=== PATIENT | male | born 1980 | race Two or more races ===

== ENCOUNTER 2018-11-14 08:57 | Inpatient (IN) | payer MEDICARE, OTHER ==
[~2018-11-14] VITALS: Ht 167.6 cm; Wt 72.6 kg
[2018-11-14] MEDS ORDERED: CEFAZOLIN 100 ML IV ONE (09:45)
[2018-11-14] MEDS ORDERED: LIDOCAINE HCL 1% 20 ML VIAL ONE ×2 (10:08→10:28)
[2018-11-14] MEDS ORDERED: BUPIVACAINE ONE (10:09)
[2018-11-14] MEDS ORDERED: BUPIVACAINE 0.25% 30 ML VIAL ONE (10:28)
[2018-11-14] MEDS ORDERED: POLYMYXIN B SULFATE 500,000 UNITS, BACITRACIN 50,000 UNITS, NORMAL SALINE 20 ML MC ONE ×3 (10:45)
[2018-11-14] MEDS ORDERED: MIDAZOLAM HCL 2 MG/2 ML VIAL ONE (10:52)
[2018-11-14] MEDS ORDERED: FENTANYL CITRATE 250 MCG/5 ML AMPUL ONE (10:52)
[2018-11-14] MEDS ORDERED: METOCLOPRAMIDE HCL 10 MG/2 ML VIAL ONE (10:53)
[2018-11-14] MEDS ORDERED: METOCLOPRAMIDE HCL 10 MG/2 ML VIAL IV ONE (13:20)
[2018-11-14] MEDS ORDERED: PROPOFOL 200 MG/20 ML BOTTLE IV ONE (13:20)
[2018-11-14] MEDS ORDERED: CEFAZOLIN 1 G VIAL MC ONE (13:20)
[2018-11-14] MEDS ORDERED: SEVOFLURANE 250 ML BOTTLE IH ONE (13:20)
[2018-11-14] MEDS ORDERED: EPHEDRINE SULFATE 50 MG/ML AMPUL MC ONE (13:20)
[2018-11-14] MEDS ORDERED: IV LACTATED RINGERS SOLUTION 1,000 ML BAG IV ONE (13:20)
[2018-11-14] MEDS ORDERED: ONDANSETRON 4 MG/2 ML VIAL IV ONE (13:20)
[2018-11-14 14:00] VITALS: BP 110/63
[2018-11-14 14:15] VITALS: BP 113/60
--- NOTE | 2018-11-14 14:20 | NUR ---
Received patient from surgery, patient oriented to room, and vitals recorded. pictures taken of wounds on left hip and right heal.
[2018-11-14 14:30] VITALS: BP 111/60
[2018-11-14 15:00] VITALS: BP 115/61
[2018-11-14 15:30] VITALS: BP 117/68
[2018-11-14] MEDS ORDERED: MAGNESIUM HYDROXIDE 30 ML LIQUID UDC PO PRN (18:45)
[2018-11-14] MEDS ORDERED: ONDANSETRON 4 MG/2 ML VIAL IV PRN (18:45)
[2018-11-14] MEDS ORDERED: HYDROCODONE/APAP 5-325MG TABLET PO PRN (18:45)
[2018-11-14] MEDS ORDERED: ACETAMINOPHEN 325 MG TABLET PO PRN (18:45)
[2018-11-14 18:57] LABS: BASOPHILS % (AUTO) 0.4 % (0.0-2.0); EOSINOPHILS # (AUTO) 0.2 K/uL (0.0-0.7); EOSINOPHILS % (AUTO) 2.1 % (0.0-7.0); HEMATOCRIT 37.5 % (36.7-47.1); HEMOGLOBIN 12.8 g/dL (12.5-16.3); LYMPHOCYTES % (AUTO) 10.5 % (20.5-51.5); MEAN CORPUSCULAR HEMOGLOBIN 31.1 uug (23.8-33.4); MEAN CORPUSCULAR HGB CONC 34 g/dL (32.5-36.3); MEAN CORPUSCULAR VOLUME 91.1 fL (73.0-96.2); MONOCYTES # (AUTO) 0.6 K/uL (2.0-10.0); MONOCYTES % (AUTO) 6.4 % (0.0-11.0); NEUTROPHILS # (AUTO) 7.7 K/uL (1.8-8.9); NEUTROPHILS % (AUTO) 80.6 % (38.5-71.5); PLATELET COUNT (AUTO) 394 K/uL (152-348); RED BLOOD CELL COUNT(AUTO) 4.12 MIL/uL (4.06-5.63); WHITE BLOOD COUNT (AUTO) 9.6 K/uL (3.6-10.2)
--- NOTE | 2018-11-14 19:12 | NUR ---
Patient in bed with mother at bedside. Patient's home wound care guide sent to physician to continue during hospitalization.
[2018-11-14 19:16] LABS: BILIRUBIN,TOTAL 0.6 mg/dL (0.2-1.0); TOTAL PROTEIN, SERUM 6.9 g/dL (6.4-8.2)
--- NOTE | 2018-11-14 19:20 | NUR ---
RECIEVED PATIENT AWAKE AND ALERT WITH FAMILY MEMBER AT BEDSIDE. NO COMPLAINTS OF PAIN OR DISCOMFORT. VS WNL AND PATIENT IS STABLE. IV SITE PATENT AND INTACT. BANDAGE ON LEFT LOWER EXTREMITY IS CLEAN, DRY, AND INTACT. WILL CONTINUE TO MONITOR.
[2018-11-14 20:00] VITALS: BP 110/62
[2018-11-14] MEDS: HYDROCODONE/APAP 10-325 MG TABLET PO PRN (20:34)
[2018-11-15 05:12] VITALS: BP 126/76
[2018-11-15 05:49] LABS: BASOPHILS % (AUTO) 0.4 % (0.0-2.0); EOSINOPHILS # (AUTO) 0.3 K/uL (0.0-0.7); EOSINOPHILS % (AUTO) 4.3 % (0.0-7.0); LYMPHOCYTES # (AUTO) 1.4 K/uL (20.0-40.0); LYMPHOCYTES % (AUTO) 19.9 % (20.5-51.5); MEAN CORPUSCULAR HEMOGLOBIN 30.4 uug (23.8-33.4); MEAN CORPUSCULAR HGB CONC 33 g/dL (32.5-36.3); MEAN CORPUSCULAR VOLUME 91.3 fL (73.0-96.2); MONOCYTES # (AUTO) 0.7 K/uL (2.0-10.0); MONOCYTES % (AUTO) 9.4 % (0.0-11.0); NEUTROPHILS # (AUTO) 4.6 K/uL (1.8-8.9); PLATELET COUNT (AUTO) 395 K/uL (152-348); RED BLOOD CELL COUNT(AUTO) 4.27 MIL/uL (4.06-5.63)
--- NOTE | 2018-11-15 06:00 | NUR ---
PATIENT SLEPT COMFORTABLY THROUGHOUT NIGHT. NO COMPLAINTS OF PAIN OR DISCOMFORT. ALL NURSING NEEDS MET PROMPTLY. 22 GAUGE IV ON LEFT HAND PATENT AND INTACT. ENCOURAGED PATIENT TO TURN AND REPOSITION EVERY 2 HOURS. VS ARE WNL AND PATIENT IS STABLE. LEFT LOWER EXTREMITY BANDAGE IS CLEAN, DRY, AND INTACT AND TOES ARE PINKISH IN COLOR. REPORT GIVEN TO ONCOMING SHIFT.
[2018-11-15 06:10] LABS: CREATININE 0.7 mg/dL (0.6-1.3); PHOSPHOROUS 3.8 mg/dL (2.5-4.9); POTASSIUM 3.8 mmol/L (3.5-5.1)
[2018-11-15] MEDS: HYDROCODONE/APAP 5-325MG TABLET PO PRN ×2 (08:19→20:02)
[2018-11-15 11:35] VITALS: BP 102/56
[2018-11-15 15:50] VITALS: BP 136/92
[2018-11-15 20:05] VITALS: BP 136/87
--- NOTE | 2018-11-15 20:53 | NUR ---
RECEIVED PATIENT AWAKE AND ALERT IN BED. NO SIGNS OF ACUTE DISTRESS NOTED. COMPLAINS OF PAIN ON THE LEFT FOOT. WILL CHECK ORDERS FOR PAIN MEDICATION. NO COMPLAINTS OF PAIN. HEPLOCK ON THE LEFT HAND IS INTACT AND PATENT. SAFETY MEASURES INITIATED. BED IS LOW AND LOCKED, CALL LIGHT IS WITHIN REACH. WILL CONTINUE TO MONITOR.
[2018-11-16 05:27] VITALS: BP 134/82
[2018-11-16] MEDS: FLUOXETINE HCL 10 MG CAPSULE PO SCH (08:01)
[2018-11-16 11:48] VITALS: BP 125/71
[2018-11-16 16:03] VITALS: BP 118/63
[2018-11-16] MEDS: HYDROCODONE/APAP 5-325MG TABLET PO PRN (18:15)
--- NOTE | 2018-11-16 20:00 | NUR ---
AWAKE ALERT .LEFT FOOT DRESSING DRY AND INTACT. NO COMPLAINT MADE. LEFT WOUND BUTTOCKS NOTED,CLEAN,LEFT HEEL DRY AND UNSTAGEABLE. ON AIR BED MATTRESS.
[2018-11-16 20:21] VITALS: BP 140/87
--- NOTE | 2018-11-16 23:15 | NUR ---
MEDICATED FOR LEFT FOOT PAIN. NORCO 1 TAB PO GIVEN,SLEPT AFTER.
[2018-11-16] MEDS: HYDROCODONE/APAP 10-325 MG TABLET PO PRN (23:16)
[2018-11-16 23:30] VITALS: BP 157/85
[2018-11-17 05:56] VITALS: BP 128/78
--- NOTE | 2018-11-17 06:03 | NUR ---
SLEPT MOST OF THE NITE.LEFT TOES WITH GOOD BLANCHING,GOOD SENSATION,ABLE TO WIGGLE TOES,DRESSINGS DRY AND INTACT.NO COMPLAINTS.
--- NOTE | 2018-11-17 07:06 | NUR ---
REFUSED DRESSINGS ON LEFT BUTTOCKS.
--- NOTE | 2018-11-17 08:00 | NUR ---
received in bed, denies of pain, left foot dsg dry and intact, elevated on pillow, breakfast served, states would like to rest some more, call light within reach
[2018-11-17] MEDS: FLUOXETINE HCL 10 MG CAPSULE PO SCH (08:21)
[2018-11-17 10:58] VITALS: BP 133/77
--- NOTE | 2018-11-17 11:30 | NUR ---
ambulated to BR with walker, washed himself- tolerated well.
[2018-11-17] MEDS ORDERED: HYDR-4354 PO (11:52)
[2018-11-17] MEDS ORDERED: FLUO-119 PO (11:52)
[2018-11-17] MEDS ORDERED: HYDR-3326 PO (11:52)
[2018-11-17] MEDS: HYDROCODONE/APAP 5-325MG TABLET PO PRN (14:47)
[2018-11-17 14:51] VITALS: BP 132/77
--- NOTE | 2018-11-17 16:25 | NUR ---
pt is d/cd to [facility] and gave report to Joanne. pt's brother Diaz and mom aware of d/c
--- NOTE | 2018-11-17 18:34 | NUR ---
awaitiing for ambulance, pt in stable condition
--- NOTE | 2018-11-17 19:17 | NUR ---
ambulance here, report given, taken per stretcher in stable condition
[2018-11-18] MEDS ORDERED: FLUOXETINE HCL 20 MG CAPSULE PO SCH (09:00)
== END 2018-11-17 19:24 | DRG 982 ==
LOC: DS 08:57 → MEDSURG3 12:45
PROVIDERS: ADMIT Nurse Practitioner Acute Care; ATTEND Nurse Practitioner Acute Care
PROC: 0L8P0ZZ Division of Left Lower Leg Tendon, Open Approach (ICD-10-PCS; principal; 2018-11-14)
PROC: 0Q8P0ZZ Division of Left Metatarsal, Open Approach (ICD-10-PCS; 2018-11-14)
PROC: 0L8W0ZZ Division of Left Foot Tendon, Open Approach (ICD-10-PCS; 2018-11-14)
DX: L97.529 Non-pressure chronic ulcer of other part of left foot with unspecified severity (principal); E87.1 Hypo-osmolality and hyponatremia; E44.1 Mild protein-calorie malnutrition; F33.2 Major depressive disorder, recurrent severe without psychotic features; G57.90 Unspecified mononeuropathy of unspecified lower limb; Q05.9 Spina bifida, unspecified; Z98.2 Presence of cerebrospinal fluid drainage device; F17.210 Nicotine dependence, cigarettes, uncomplicated; E88.09 Other disorders of plasma-protein metabolism, not elsewhere classified; F41.9 Anxiety disorder, unspecified; Z68.25 Body mass index [BMI] 25.0-25.9, adult; F19.90 Other psychoactive substance use, unspecified, uncomplicated; M21.542 Acquired clubfoot, left foot; S92.352A Displaced fracture of fifth metatarsal bone, left foot, initial encounter for closed fracture; X58.XXXA Exposure to other specified factors, initial encounter; Y93.9 Activity, unspecified; Y92.009 Unspecified place in unspecified non-institutional (private) residence as the place of occurrence of the external cause
CPT/HCPCS: 36415; 73630; 83735; 84100; 85025; 87070; 87075; A4649; A4663; G0378; J0690; J2250; J2405; J2765; J3010; J3490; J7120